=== PATIENT | female | born 1985 | race Caucasian/White ===

== ENCOUNTER 2022-03-11 00:40 | Emergency (ER) | payer MEDICAID ==
[~2022-03-11] VITALS: Ht 160 cm; Wt 108.9 kg
[2022-03-11 00:47] VITALS: BP 158/85
--- NOTE | 2022-03-11 00:53 | NUR ---
pt to lobby to madeline gilliam
--- NOTE | 2022-03-11 02:14 | NUR ---
PT AMBULATED TO BED #5
--- NOTE | 2022-03-11 03:42 | NUR ---
Dr. Damon examining patient.
[2022-03-11] MEDS ORDERED: BUTO10SP10 NS ×2 (03:45→20:05)
[2022-03-11 03:54] VITALS: BP 124/61
--- NOTE | 2022-03-11 03:54 | NUR ---
Patient discharged with v/s stable. Written and verbal after care instructions given and explained for medicine refill and migraine headache. Patient alert, oriented and verbalized understanding of instructions. Ambulatory with to car. All questions addressed prior to discharge. ID band removed. Patient advised to follow up with PMD. Rx of Butophanol given. Patient educated on indication of medication including possible reaction and side effects. Opportunity to ask questions provided and answered.
== END 2022-03-11 03:54 | disposition home or self-care (01) ==
LOC: MED 00:40
DX: G43.909 Migraine, unspecified, not intractable, without status migrainosus (principal); Z76.0 Encounter for issue of repeat prescription
CPT/HCPCS: 99281